=== PATIENT | male | born 1980 | race Caucasian/White ===

== ENCOUNTER 2020-10-29 09:13 | Outpatient (CLI) | payer OTHER, SELFPAY ==
[2020-10-29 10:01] LABS: SARS-CoV-2 Ag Positive (Negative)
== END 2020-10-29 09:14 | disposition home or self-care (01) ==
PROVIDERS: PCP Physician Assistant; Visit Provider Physician Assistant
DX: U07.1 COVID-19 (principal)
CPT/HCPCS: 87426